=== PATIENT | female | born 1945 | race Two or more races ===

== ENCOUNTER 2021-05-15 22:17 | Emergency (ER) | payer OTHER ==
[~2021-05-15] VITALS: Ht 167.6 cm; Wt 79.8 kg
[2021-05-15] MEDS ORDERED: METFORMIN HCL500 M3 (22:39)
[2021-05-15] MEDS ORDERED: TENORMIN25 MG (22:39)
[2021-05-15] MEDS ORDERED: COZAAR100 MG (22:39)
[2021-05-15] MEDS ORDERED: MECLIZINE HCL25 MG (22:40)
[2021-05-15] MEDS ORDERED: CIPRO250 MG (22:40)
[2021-05-15] MEDS ORDERED: PROAIR RESPICL90 MCG (22:40)
[2021-05-15] MEDS ORDERED: VIMPAT100 MG (22:40)
[2021-05-15] MEDS ORDERED: SEREVENT DISKU50 MCG (22:41)
[2021-05-15] MEDS ORDERED: PEPCID AC10 MG (22:41)
== END 2021-05-16 00:08 | disposition home or self-care (01) ==
LOC: ER 22:17
DX: J02.9 Acute pharyngitis, unspecified (principal)